=== PATIENT | female | born 1940 | race Caucasian/White ===

== ENCOUNTER 2016-09-12 07:40 | Observation (INO) | payer MEDICARE ==
[~2016-09-12] VITALS: Ht 154.9 cm; Wt 66.2 kg
[2016-09-12] VITALS (10 sets, daily range): BP systolic 90–198; BP diastolic 44–97; PULSE 56–70; RESP 15–18; TEMP 97–97.7; O2SAT 88–99
[2016-09-12] MEDS ORDERED: SIMV80TA PO (07:52)
[2016-09-12] MEDS ORDERED: LISI10TA3 PO (07:52)
--- NOTE | 2016-09-12 07:53 | PD ---
HPI Chief Complaint: Chest Pain Time Seen by Provider: 07:44 Travel History International Travel<30 days: No Contact w/Intl Traveler<30days: No Traveled to known affect area: No History of Present Illness HPI 76yo F with PMH of HTN, HLD presents to the ED with c/o left sided chest pain since last night. States she was sitting on couch and had left sided chest pain that was intermittent. However, when she woke up this morning, it was constant. Pain is pressure like, radiates up left jaw and left arm with some tingling in left fingers at times. Associated with chills, mild sob and nausea. Denies any fever, cough, vomiting, abdominal pain. Denies any previous history of similar chest pain, [place] or stroke. Does not take daily aspirin. Denies cig smoking. PFSH Social History Tobacco Use: No Allergies-Medications (Allergen,Severity, Reaction): Coded Allergies: No Known Allergies (Unverified , 09/12/16) Reported Meds & Prescriptions Reported Meds & Active Scripts Active Reported Simvastatin 80 Mg Tab 80 Mg PO DAILY Lisinopril 10 Mg Tab 10 Mg PO DAILY Review of Systems Except as stated in HPI: all other systems reviewed are Neg Physical Exam Narrative GENERAL: 76yo F in mild distress. SKIN: Focused skin assessment warm/dry. HEAD: Atraumatic. Normocephalic. NECK: Trachea midline. No JVD. CARDIOVASCULAR: Regular rate and rhythm. No murmur appreciated. RESPIRATORY: No accessory muscle use. Clear to auscultation. Breath sounds equal bilaterally. GASTROINTESTINAL: Abdomen soft, non-tender, nondistended. No rebound tenderness or guarding. MUSCULOSKELETAL: No obvious deformities. No clubbing. No cyanosis. No edema. No calf tenderness. NEUROLOGICAL: Awake and alert. No obvious cranial nerve deficits. Motor grossly within normal limits. Normal speech. PSYCHIATRIC: Appropriate mood and affect; insight and judgment normal. Data Data Last Documented VS Vital Signs Date Time Temp Pulse Resp B/P Pulse Ox O2 Delivery O2 Flow Rate FiO2 09/12/16 08:56 62 15 120/66 99 Nasal Cannula 2 09/12/16 07:46 97.7 Orders Electrocardiogram (09/12/16 07:49) Basic Metabolic Panel (Bmp) (09/12/16 07:49) Ckmb (Isoenzyme) Profile (09/12/16 07:49) Complete Blood Count With Diff (09/12/16 07:49) Magnesium (Mg) (09/12/16 07:49) Prothrombin Time / Inr (Pt) (09/12/16 07:49) Act Partial Throm Time (Ptt) (09/12/16 07:49) Troponin I (09/12/16 07:49) Chest, Single Ap (09/12/16 07:49) Ecg Monitoring (09/12/16 07:49) Bilateral Bp Monitoring (09/12/16 07:49) Iv Access Insert/Monitor (09/12/16 07:49) Oximetry (09/12/16 07:49) Oxygen Administration (09/12/16 07:49) Aspirin (Aspirin) (09/12/16 08:00) Nitroglycerin Sl (Nitrostat Sl) (09/12/16 08:00) Ondansetron Inj (Zofran Inj) (09/12/16 08:15) Sodium Chlor 0.9% 1000 Ml Inj (Ns 1000 M (09/12/16 09:00) NPO (09/12/16 08:59) Admit Order (Ed Use Only) (09/12/16 08:59) Labs Laboratory Tests Test 09/12/16 07:58 White Blood Count 8.8 TH/MM3 Red Blood Count 4.59 MIL/MM3 Hemoglobin 14.5 GM/DL Hematocrit 43.3 % Mean Corpuscular Volume 94.2 FL Mean Corpuscular Hemoglobin 31.5 PG Mean Corpuscular Hemoglobin 33.4 % Concent Red Cell Distribution Width 11.9 % Platelet Count 250 TH/MM3 Mean Platelet Volume 9.8 FL Neutrophils (%) (Auto) 60.3 % Lymphocytes (%) (Auto) 28.7 % Monocytes (%) (Auto) 8.3 % Eosinophils (%) (Auto) 1.7 % Basophils (%) (Auto) 1.0 % Neutrophils # (Auto) 5.4 TH/MM3 Lymphocytes # (Auto) 2.5 TH/MM3 Monocytes # (Auto) 0.7 TH/MM3 Eosinophils # (Auto) 0.1 TH/MM3 Basophils # (Auto) 0.1 TH/MM3 CBC Comment AUTO DIFF Differential Comment AUTO DIFF CONFIRMED Prothrombin Time 10.0 SEC Prothromb Time International 0.9 RATIO Ratio Activated Partial 24.2 SEC Thromboplast Time Sodium Level 143 MEQ/L Potassium Level 3.7 MEQ/L Chloride Level 104 MEQ/L Carbon Dioxide Level 31.8 MEQ/L Anion Gap 7 MEQ/L Blood Urea Nitrogen 20 MG/DL Creatinine 0.80 MG/DL Estimat Glomerular Filtration 70 ML/MIN Rate Random Glucose 103 MG/DL Calcium Level 9.9 MG/DL Magnesium Level 2.2 MG/DL Total Creatine Kinase 49 U/L Troponin I LESS THAN 0.02 NG/ML MDM Medical Decision Making Medical Screen Exam Complete: Yes Emergency Medical Condition: Yes Interpretation(s) EKG: Sinus bradycardia at 59bpm. Normal axis. No ST segment elevation or depression. Laboratory Tests Test 09/12/16 07:58 White Blood Count 8.8 TH/MM3 (4.0-11.0) Red Blood Count 4.59 MIL/MM3 (4.00-5.30) Hemoglobin 14.5 GM/DL (11.6-15.3) Hematocrit 43.3 % (35.0-46.0) Mean Corpuscular Volume 94.2 FL (80.0-100.0) Mean Corpuscular Hemoglobin 31.5 PG (27.0-34.0) Mean Corpuscular Hemoglobin 33.4 % Concent (32.0-36.0) Red Cell Distribution Width 11.9 % (11.6-17.2) Platelet Count 250 TH/MM3 (150-450) Mean Platelet Volume 9.8 FL (7.0-11.0) Neutrophils (%) (Auto) 60.3 % (16.0-70.0) Lymphocytes (%) (Auto) 28.7 % (9.0-44.0) Monocytes (%) (Auto) 8.3 % (0.0-8.0) Eosinophils (%) (Auto) 1.7 % (0.0-4.0) Basophils (%) (Auto) 1.0 % (0.0-2.0) Neutrophils # (Auto) 5.4 TH/MM3 (1.8-7.7) Lymphocytes # (Auto) 2.5 TH/MM3 (1.0-4.8) Monocytes # (Auto) 0.7 TH/MM3 (0-0.9) Eosinophils # (Auto) 0.1 TH/MM3 (0-0.4) Basophils # (Auto) 0.1 TH/MM3 (0-0.2) CBC Comment AUTO DIFF Differential Comment AUTO DIFF CONFIRMED Prothrombin Time 10.0 SEC (9.8-11.6) Prothromb Time International 0.9 RATIO Ratio Activated Partial 24.2 SEC Thromboplast Time (24.3-30.1) Sodium Level 143 MEQ/L (136-145) Potassium Level 3.7 MEQ/L (3.5-5.1) Chloride Level 104 MEQ/L (98-107) Carbon Dioxide Level 31.8 MEQ/L (21.0-32.0) Anion Gap 7 MEQ/L (5-15) Blood Urea Nitrogen 20 MG/DL (7-18) Creatinine 0.80 MG/DL (0.50-1.00) Estimat Glomerular Filtration 70 ML/MIN (>89) Rate Random Glucose 103 MG/DL (74-106) Calcium Level 9.9 MG/DL (8.5-10.1) Magnesium Level 2.2 MG/DL (1.5-2.5) Total Creatine Kinase 49 U/L (26-192) Troponin I LESS THAN 0.02 NG/ML (0.02-0.05) Differential Diagnosis ACS vs. NSTEMI vs. GERD vs. musculoskeletal pain Narrative Course 76yo F with chest pain concerning for angina. EKG unremarkable. Pt given aspirin 325mg PO and sublingual nitro PRN chest pain. Pt's blood pressure decreased after sublingual nitro and was given a little NS IVF. Pt felt a little nauseous after nitro and given zofran 4mg IV. BP normalized to 122/66. O2 sat did go down to 88% on RA at a time but it is now 98% on 1L NC and pt states her chest pain is improving. Labs reviewed, no leukocytosis. Troponin negative. BUN mildly increased at 20. CXR showed left basilar subsegmental atelectasis. Will admit pt to chest pain center for serial EKG and cardiac enzyme. Discussed case with Dr. Kelly and accepted to his service. Pt may need stress test, last ate or drank at 6pm last night, will keep NPO for now. Diagnosis Primary Impression: Chest pain Qualified Code: R07.9 - Chest pain, unspecified type Admitting Information Admitting Physician Requests: Linn Olivares DO September 12, 2016 07:53
[2016-09-12] MEDS ORDERED: ASPIRIN 325 MG TAB PO ONE (08:00)
[2016-09-12] MEDS: NITROGLYCERIN 0.4 MG SL 25 TABS/BTL SL PRN ×2 (08:01→08:09)
[2016-09-12 08:06] LABS: AUTOMATED NEUTROPHIL # 5.4 TH/MM3 (1.8-7.7); BASOPHIL # 0.1 TH/MM3 (0-0.2); EOSINOPHIL # 0.1 TH/MM3 (0-0.4); EOSINOPHIL % 1.7 % (0.0-4.0); HEMATOCRIT 43.3 % (35.0-46.0); LYMPH % 28.7 % (9.0-44.0); LYMPHOCYTE # 2.5 TH/MM3 (1.0-4.8); MEAN CELL VOLUME 94.2 FL (80.0-100.0); MEAN CORPUSCULAR HEMOGLOBIN 31.5 PG (27.0-34.0); MEAN CORPUSCULAR HGB CONC 33.4 % (32.0-36.0); MONO % 8.3 % (0.0-8.0); NEUT % 60.3 % (16.0-70.0); PLATELET COUNT 250 TH/MM3 (150-450); RED BLOOD COUNT 4.59 MIL/MM3 (4.00-5.30); RED CELL DISTRIBUTION WIDTH 11.9 % (11.6-17.2); WHITE BLOOD COUNT 8.8 TH/MM3 (4.0-11.0)
[2016-09-12 08:09] LABS: HEMO FLAGS AUTO DIFF
[2016-09-12 08:11] LABS: CHLORIDE 104 MEQ/L (98-107); POTASSIUM 3.7 MEQ/L (3.5-5.1); SODIUM (NA) 143 MEQ/L (136-145)
[2016-09-12 08:14] LABS: ANION GAP 7 MEQ/L (5-15); BICARBONATE 31.8 MEQ/L (21.0-32.0); BLOOD UREA NITROGEN 20 MG/DL (7-18); MAGNESIUM 2.2 MG/DL (1.5-2.5)
[2016-09-12 08:15] LABS: APTT (PATIENT) 24.2 SEC (24.3-30.1); INTERNATIONAL NORMALIZED RATIO 0.9 RATIO
[2016-09-12] MEDS ORDERED: ONDANSETRON HCL 4 MG/2 ML VIAL IV PUSH ONE (08:15)
[2016-09-12 08:18] LABS: GLOMERULAR FILTRATION RATE 70 ML/MIN (>89)
[2016-09-12 08:24] LABS: CREATINE KINASE 49 U/L (26-192)
[2016-09-12 08:28] LABS: SCAN/DIFF AUTO DIFF CONFIRMED
--- NOTE | 2016-09-12 08:43 | RADHPO ---
EXAM DATE/TIME: 09/12/2016 08:16 [facility] COMPARISON: No previous studies available for comparison. INDICATIONS : Chest pain, short of breath, nausea. MEDICAL HISTORY : Hypertension. SURGICAL HISTORY : None. ENCOUNTER: Initial ACUITY: 1 day PAIN SCORE: 8/10 LOCATION: Bilateral chest FINDINGS: A single view of the chest demonstrates no evidence of mass, infiltrate or effusion. Minimal left bas ilar subsegmental atelectasis. The cardiomediastinal contours are unremarkable. Osseous structures a re intact. CONCLUSION: Left basilar subsegmental atelectasis. Luisito Gallardo MD on September 12, 2016 at 8:39 Board Certified Radiologist. This report was verified electronically.
[2016-09-12] MEDS ORDERED: SODIUM CHLOR 0.9% 1000 ML INJ 1,000 ML IV SCH (08:57)
[2016-09-12] MEDS ORDERED: ACETAMINOPHEN 500 MG CPLT PO PRN (09:00)
[2016-09-12] MEDS ORDERED: ASPIRIN 325 MG TAB PO SCH (09:00)
[2016-09-12] MEDS ORDERED: SODIUM CHLORIDE 0.9% FLUSH 10 ML FLUSH IV FLUSH PRN (09:00)
[2016-09-12] MEDS ORDERED: MORPHINE SULFATE 4 MG/ML INJ IV PRN (09:00)
[2016-09-12] MEDS ORDERED: SODIUM CHLORIDE 0.9% FLUSH 10 ML FLUSH IV FLUSH SCH (09:00)
[2016-09-12] MEDS ORDERED: ACETAMINOPHEN/HYDROcodone 325 MG/7.5 MG TAB PO PRN (09:00)
[2016-09-12] MEDS ORDERED: ONDANSETRON HCL 4 MG/2 ML VIAL IV PRN (09:00)
[2016-09-12] MEDS ORDERED: HEPARIN SODIUM - SQ 10,000 UNITS/ML VIAL SQ SCH (09:00)
[2016-09-12] MEDS ORDERED: SODIUM CHLOR 0.9% 1000 ML INJ 1,000 ML IV ONE (09:00)
[2016-09-12] MEDS ORDERED: PRAVASTATIN SOD 80 MG TAB PO SCH (09:15)
[2016-09-12 10:53] LABS: CREATINE KINASE 35 U/L (26-192)
--- NOTE | 2016-09-12 12:58 | HHI.DCPOC ---
Discharge Care Plan Diagnosis: (1) Chest pain Your Health Problems Are: Difficulty with ADL Chest Pain Exercise Tolerance Goals to Promote Your Health * To prevent worsening of your condition and complications * To maintain your health at the optimal level Directions to Meet Your Goals Take your medications as prescribed Follow your dietary instruction Follow activity as directed Keep your appointments as scheduled Take your immunizations and boosters as scheduled If your symptoms worsen call your PCP, if no PCP go to Urgent Care Center or Emergency Room Smoking is Dangerous to Your Health. Avoid second hand smoke Call the 24-hour hour crisis hotline for domestic abuse at Hemanth Kelly MD September 12, 2016 12:58
--- NOTE | 2016-09-12 13:09 | HHI.HP ---
[facility] Carly Barajas MD Admission Diagnosis Chest pain Diagnoses: Chief Complaint: Chest pain Travel History International Travel<30 Days: No Contact w/Intl Traveler <30 Da: No Traveled to Known Affected Are: No History of Present Illness This is a 76 yo F with PMH of HTN and HLD. She presents to the ED complaining of left sided chest pain. Last night, she did not feel well. This morning she developed a constant heavy sensation in her chest scale of 8 out of 10 radiating to her jaw and left upper extremity with some tingling in her left fingers at times. She also reports of dizziness, nausea and diaphoresis. Denies palpitations, shortness of breath, fever and chills. Denies any previous history of similar chest pain, [place] or stroke, DVT and PE. No recent immobilization. Does not take daily aspirin. When she arrived in the emergency department, her blood pressure was elevated and dropped to 90/44 after receiving sublingual nitroglycerin. She received fluid bolus . At this time as, she is pain-free but feels wiped out. Review of Systems Except as stated in HPI: all other systems reviewed are Neg Past Family Social History Past Medical History As previously mentioned Past Surgical History Knee and cataract surgery Reported Medications Simvastatin 80 Mg Tab 80 Mg PO DAILY Lisinopril 10 Mg Tab 10 Mg PO DAILY Allergies: Coded Allergies: No Known Allergies (Unverified , 09/12/16) Family History No heart disease Social History Does not smoke or drink Physical Exam Vital Signs Vital Signs Date Time Temp Pulse Resp B/P Pulse Ox O2 Delivery O2 Flow Rate FiO2 09/12/16 11:44 98 21 09/12/16 10:37 68 09/12/16 10:00 97.0 56 18 140/74 99 09/12/16 09:40 61 15 122/67 99 Nasal Cannula 2 09/12/16 08:56 62 15 120/66 99 Nasal Cannula 2 09/12/16 08:15 58 15 90/44 88 Nasal Cannula 2 09/12/16 08:15 15 09/12/16 08:10 61 112/61 108/59 09/12/16 07:55 99 Room Air 09/12/16 07:55 15 98 Room Air 09/12/16 07:46 97.7 70 18 198/97 96 Physical Exam GENERAL: This is a well-nourished, well-developed patient, in no apparent distress. SKIN: No rashes, ecchymoses or lesions. Cool and dry. HEAD: Atraumatic. Normocephalic. No temporal or scalp tenderness. EYES: Pupils equal round and reactive. Extraocular motions intact. No scleral icterus. No injection or drainage. ENT: Nose without bleeding, purulent drainage or septal hematoma. Throat without erythema, tonsillar hypertrophy or exudate. Uvula midline. Airway patent. NECK: Trachea midline. No JVD or lymphadenopathy. Supple, nontender, no meningeal signs. CARDIOVASCULAR: Regular rate and rhythm without murmurs, gallops, or rubs. Tender chest wall RESPIRATORY: Clear to auscultation. Breath sounds equal bilaterally. No wheezes , rales, or rhonchi. GASTROINTESTINAL: Abdomen soft, non-tender, nondistended. No guarding. MUSCULOSKELETAL: Extremities without clubbing, cyanosis, or edema. No joint tenderness, effusion, or edema noted. No calf tenderness. Negative Homans sign bilaterally. NEUROLOGICAL: Awake and alert. Cranial nerves II through XII intact. Motor and sensory grossly within normal limits. Five out of 5 muscle strength in all muscle groups. Normal speech. Laboratory Laboratory Tests Test 09/12/16 09/12/16 07:58 10:20 White Blood Count 8.8 Red Blood Count 4.59 Hemoglobin 14.5 Hematocrit 43.3 Mean Corpuscular Volume 94.2 Mean Corpuscular Hemoglobin 31.5 Mean Corpuscular Hemoglobin 33.4 Concent Red Cell Distribution Width 11.9 Platelet Count 250 Mean Platelet Volume 9.8 Neutrophils (%) (Auto) 60.3 Lymphocytes (%) (Auto) 28.7 Monocytes (%) (Auto) 8.3 Eosinophils (%) (Auto) 1.7 Basophils (%) (Auto) 1.0 Neutrophils # (Auto) 5.4 Lymphocytes # (Auto) 2.5 Monocytes # (Auto) 0.7 Eosinophils # (Auto) 0.1 Basophils # (Auto) 0.1 CBC Comment AUTO DIFF Differential Comment AUTO DIFF CONFIRMED Prothrombin Time 10.0 Prothromb Time International 0.9 Ratio Activated Partial 24.2 Thromboplast Time Sodium Level 143 Potassium Level 3.7 Chloride Level 104 Carbon Dioxide Level 31.8 Anion Gap 7 Blood Urea Nitrogen 20 Creatinine 0.80 Estimat Glomerular Filtration 70 Rate Random Glucose 103 Calcium Level 9.9 Magnesium Level 2.2 Total Creatine Kinase 49 35 Troponin I LESS THAN 0.02 LESS THAN 0.02 Result Diagram: 09/12/16 0758 09/12/16 0758 Imaging EKG tracing 2 interpreted by me with sinus bradycardia in the 50s with no acute ST-T changes Chest x-ray image interpreted by me with no acute cardiopulmonary disease Last Impressions Chest X-Ray 09/12/16 0749 Signed Impressions: Service Date/Time: Monday, September 12, 2016 08:16 - CONCLUSION: Left basilar subsegmental atelectasis. Luisito Gallardo MD Assessment and Plan Problem List: (1) Chest pain ICD Code: R07.9 Status: Acute Assessment and Plan This is a 76 yo F with PMH of HTN and HLD. She presents to the ED complaining of left sided chest pain radiating to her jaw and left upper extremity with some tingling in her left fingers at times. She also reports of dizziness, nausea and diaphoresis. Chest pain. Patient is ruling out for AL. EKG unremarkable. Chest x-ray also unremarkable. Because of risk factors of hypertension and hyperlipidemia, patient will undergo stress test. Keep nothing by mouth. Continue aspirin. If stress test negative for ischemia, chest pain likely secondary to musculoskeletal disorder. Transient hypotension after receiving sublingual nitroglycerin. Improved with fluid bolus. Hold antihypertensives for now. Continue IV hydration while still nothing by mouth. History of hyperlipidemia continue statins DVT prophylaxis with SCD and subcutaneous heparin Discussed Condition With Patient, family and nursing staff Discharge patient to home Condition on discharge: Improved Heart healthy Diet as tolerated Ad Jacklyn activity Rx written: OTC Tylenol or ibuprofen Follow-up with primary care physician in one week Problem Qualifiers (1) Chest pain: Qualified Code: R07.9 - Chest pain, unspecified type Hemanth Kelly MD September 12, 2016 13:09
[2016-09-12 14:33] LABS: CREATINE KINASE 34 U/L (26-192)
[2016-09-12] MEDS ORDERED: REGADENOSON INJ 0.4 MG/5 ML SYR IV ONE (14:48)
--- NOTE | 2016-09-12 15:24 | EKG ---
Date Performed: 09/12/2016 Time Performed: 07:48:58 PTAGE: 76 years EKG: Sinus bradycardia Normal ECG except for rate NO PREVIOUS TRACING DOCTOR: Isabella Milan Interpretating Date/Time 09/12/2016 15:23:12
--- NOTE | 2016-09-12 17:29 | RADHPO ---
EXAM DATE/TIME: 09/12/2016 14:52 [facility] COMPARISON: No previous studies available for comparison. INDICATIONS : Left chest pain radiating to left jaw and arm with nausea and dyspnea. Angina. DOSE: 27.2 mCi Tc99m Myoview at stress. 8.1 mCi Tc99m Myoview at rest. 0.4 mg Lexiscan STRESS SYMPTOMS: Heasdache. EJECTION FRACTION: > 70% MEDICAL HISTORY : Hypercholesterolemia. Hypertension. SURGICAL HISTORY : Total knee replacement, right. ENCOUNTER: Initial ACUITY: 1 day PAIN SCALE: 7/10 LOCATION: Left chest TECHNIQUE: The patient underwent pharmacologic stress with infusion of prescribed dose. Continuous ECG tracing was monitored during stress. Gated SPECT imaging was performed after stress and conventional SPECT i maging was performed at rest. The examination was performed on a SPECT/CT scanner, both attenuation and non-corrected datasets were reviewed. FINDINGS: DISTRIBUTION: The maximum perfused segment at stress is in the anterolateral wall. PERFUSION STUDY: 10% reversibility in sections of the septal wall are statistically insignificant. No scintigraphic fi ndings of ischemia. Fixed diminished perfusion to the apex may represent some apical thinning or old apical infarct. GATED STUDY: There is intact wall motion and thickening without hypokinetic or dyskinetic segments. CONCLUSION: 1. No scintigraphic findings of ischemia. 2. Fixed diminished perfusion to the apex is nonspecific and could represent some apical thinning or old apical infarct. 3. Excellent wall motion throughout with estimated ejection fraction of greater than 70%. RISK CATEGORY: Low (<1% Annual Mortality Rate) Berto Smith MD on September 12, 2016 at 17:23 Board Certified Radiologist. This report was verified electronically.
--- NOTE | 2016-09-13 06:22 | EKG ---
Date Performed: 09/12/2016 Time Performed: 10:09:06 PTAGE: 76 years EKG: Sinus bradycardia. Normal ECG except for rate PREVIOUS TRACING : 09/12/2016 07.48 Compared to prior tracing no significant change DOCTOR: Herbert Chaves Interpretating Date/Time 09/13/2016 06:22:10
--- NOTE | 2016-09-13 06:25 | EKG ---
Date Performed: 09/12/2016 Time Performed: 07:04:52 PTAGE: 76 years EKG: Sinus bradycardia. Normal ECG except for rate NO PREVIOUS TRACING DOCTOR: Herbert Chaves Interpretating Date/Time 09/13/2016 06:23:35
== END 2016-09-12 18:05 | disposition home or self-care (01) ==
LOC: PHED 07:40 → PHEDA 09:00 → PH3B 09:43
PROVIDERS: ADMIT Hospitalist; ATTEND Hospitalist
DX: R07.89 Other chest pain (principal); R11.0 Nausea; I10 Essential (primary) hypertension; E78.5 Hyperlipidemia, unspecified
CPT/HCPCS: 71010; 78452; 80048; 82550; 83735; 84484; 85025; 85610; 85730; 93005; 93017; 96374; 99285; A9502; G0378; J1644; J2405; J2785; J7030

== ENCOUNTER 2017-11-21 06:51 | Inpatient (IN) ==
[2017-11-21] MEDS ORDERED: Dexamethasone Inj 20 MG/5 ML Vial IV.PUSH ONE (07:25)
[2017-11-21] MEDS ORDERED: Sodium Chlor 0.9% Inj 73.07 ML, Ropivacaine 0.5% PF Inj 24.63 ML, Ketorolac Inj 30 MG, ... P-ARTICULR SCH ×5 (07:30)
[2017-11-21] MEDS ORDERED: Chlorhexidine 4% Topical 120 APPLIC/120 ML Bottle TOPICAL SCH (07:30)
[2017-11-21] MEDS ORDERED: Chlorhexidine Gluconate 2% 1 Pack (2 Cloths) TOPICAL SCH (07:45)
[2017-11-21] MEDS ORDERED: Metoprolol Tartrate 25 MG Tablet PO SCH (07:45)
[2017-11-21] MEDS ORDERED: SODIUM CHLOR 0.9% IV.SIG SCH (08:00)
[2017-11-21] MEDS ORDERED: ceFAZolin 2 GM Premix Inj 2 GM/50 ML PIGGYBACK IV.SIG SCH (08:00)
[2017-11-21] MEDS ORDERED: Sodium Chlor 0.9% Inj 500 ML IV.SIG SCH (08:00)
[2017-11-21] MEDS ORDERED: TRANEXAMIC ACID IV.SIG SCH (08:00)
[2017-11-21] MEDS ORDERED: Vancomycin Inj 1 GM/200 ML PIGGYBACK IV.SIG SCH (08:00)
[2017-11-21] MEDS ORDERED: Bupivacaine Liposomal PF 1.3% Inj 20 ML Vial ONE (08:43)
[2017-11-21] MEDS ORDERED: Famotidine PF Inj 20 MG/2 ML Vial ONE (09:24)
[2017-11-21] MEDS ORDERED: Post-op Orders (for Pharmacy) OTHER STA (11:28)
[2017-11-21] MEDS ORDERED: Bisacodyl 10 MG Supp RECTAL PRN (11:28)
[2017-11-21] MEDS ORDERED: Morphine Inj 4 MG/ML Vial IV.PUSH PRN (11:28)
[2017-11-21] MEDS ORDERED: Aluminum/Magnesium/Simethacone Susp 30 ML UDC PO PRN (11:28)
--- NOTE | 2017-11-21 11:32 | P.OP ---
- Preoperative Diagnosis (1) Osteoarthritis of left knee - Postoperative Diagnosis (1) Osteoarthritis of left knee Date of procedure: 11/21/17 Procedure: Left total knee arthroplasty Anesthesia: GETA, regional (Adductor canal block) Surgeon: Mir Eubanks MD Brewery Pumper: LIA Swanson The surgical procedure was assisted by my Advanced Registered Nurse Practitioner. My FROZEN PIE MAKER presence was necessary throughout this case for the manipulation and positioning of the surgical extremity. My FROZEN PIE MAKER was assisting me throughout the duration of this procedure. The skill set of an Advance Registered Nurse Practitioner was medically necessary to complete this procedure. During the surgical case, the neurosurgical nurse practitioner was working at the back table and the Advance Registered Nurse Practitioner was directly assisting me. Operation and Findings: IMPLANTS: DePuy Attune: Patella: size 32. Femur, posterior stabilized size 5 narrow. Tibia, rotating platform size 4. Tibial insert, rotating platform, posterior stabilized size 8 mm thickness. ESTIMATED BLOOD LOSS: 125 cc TOURNIQUET TIME: 35 minutes at 250 mmHg pressure. JUSTIFICATION FOR PROCEDURE: The patient has end-stage osteoarthritis to the knee. There is an attached conservative measures pathway form in the chart that describes the nonoperative measures that were undertaken prior to consideration of surgical management. The patient understood the risks and benefits of surgical management. See my office notes for further details PROCEDURE: The patient was brought back to the operative theatre. Adequate anesthesia was obtained. The patient received intravenous vancomycin and Ancef. The lower extremity was prepped and draped in the usual sterile fashion.The leg was exsanguinated, the tourniquet was raised. A standard anterior incision was performed followed by medial parapatellar arthrotomy was performed. End-stage arthritis was identified. Osteotomy of the patella was performed. We drilled holes for the patella. We trialed the patella component. We placed an intramedullary guide into the distal femur. We ultimately resected 11 mm off of the distal femur in 5 degrees of valgus. The remnants of the ACL and PCL were resected. Osteotomy of the proximal tibia was performed, resecting 5 mm off of the medial side. This was done with 3 degrees of posterior slope using an extramedullary guide. The distal end of the guide was placed in the mid aspect of the ankle. The femur was sized, and four chamfer cuts were completed in 3 of external rotation. We then cut the central box in the distal femur to replace the PCL. We resected the remnants of the menisci and removed osteophytes off of the femur and tibia. We then trialed the knee. We punched the tibia for the keel, and then used standard technique to cement in components. Excess cement was removed. We trialed the knee again and the final polyethylene thickness was chosen to provide extension to 0 degrees, and flexion of 140 degrees to gravity. The ligaments were appropriately balanced. Lateral release was not necessary to obtain excellent patellofemoral tracking. The tourniquet was released and adequate hemostasis was obtained. An intra- articular injection of a ropivacaine cocktail was injected. The posterior knee was inspected for excess cement, which was removed. The final polyethylene was put into position after thorough irrigation. We then closed deep fascia with a #2 Stratafix followed by skin with 2-0 Vicryl followed by Dermabond dressing. Postop plan is to weight-bear as tolerated. DVT prophylaxis will be performed with SCDs, VIVIANA hose, early mobilization, and Lovenox followed by aspirin.
[2017-11-21] MEDS ORDERED: TRANEXAMIC ACID IV.SIG ONE (12:00)
[2017-11-21] MEDS ORDERED: Glycopyrrolate Inj 1 MG/5 ML Syringe IV.PUSH ONE (12:00)
[2017-11-21] MEDS ORDERED: Lidocaine PF 1% Inj 5 ML Syringe INFILTRATN ONE (12:00)
[2017-11-21] MEDS ORDERED: SODIUM CHLOR 0.9% IV.SIG ONE (12:00)
[2017-11-21] MEDS ORDERED: Neostigmine Inj 5 MG/5 ML Syringe IV.PUSH ONE (12:00)
[2017-11-21] MEDS ORDERED: fentaNYL Citrate Inj 100 MCG/2 ML Ampul ONE (12:00)
[2017-11-21] MEDS ORDERED: *Meperidine Inj 25 MG/ML Vial PERIprocedural Use ONLY ONE (12:18)
[2017-11-21] MEDS ORDERED: *Ondansetron Inj 4 MG/2 ML Vial PERIprocedural Use ONLY ONE (12:18)
--- NOTE | 2017-11-21 12:26 | XR ---
EXAM DATE: 11/21/2017 12:24 PM EDT AGE/SEX: 77 years / Female INDICATIONS: Post op left knee. CLINICAL DATA: This is the patient's initial encounter. Patient reports that signs and symptoms have been present for 1 day and indicates a pain score of Nonresponsive. MEDICAL/SURGICAL HISTORY: None. None. COMPARISON: No prior exams available for comparison. FINDINGS: There is a knee prosthesis in place. There is good position and alignment on this postoperative study . The bony structures are grossly intact. CONCLUSION: Good position and alignment on this postoperative study. Electronically signed by: Heriberto See MD 11/21/2017 12:25 PM EDT
[2017-11-21] MEDS: Sod Chloride 0.9% Inj 1,000 ML IV.CONT SCH (12:38)
[2017-11-21] MEDS ORDERED: *morphine SULFATE 4 MG/ML PERIprocedure ONLY ONE (13:20)
--- NOTE | 2017-11-21 15:42 | P.DCO ---
- Physical Therapy Physical Therapy: Gait training, Transfer training, bed to chair Knee: Total knee Left Lower Extremity Weight Bearing: Weight bearing as tolerated Left Lower Extremity Range of Motion: Active ROM - Nursing Nursing: Hansa nguyen Dressing changes: Do not change dressing Additional instructions: First dressing change in the office - Certification Need for Home Health services: I have seen patient Carolynn Zamora on 11/21/17. My clinical findings support the need for the requested home health care services because: Need for Home Health Services: Limited ability to care for self, High risk of falls Homebound Certification: I certify that my clinical findings support that this patient is homebound because: Homebound Certification: Post-op weakness, Unsteady gait/balance
[2017-11-21] MEDS ORDERED: Lisinopril 10 MG Tablet PO SCH (21:00)
[2017-11-21] MEDS ORDERED: Zolpidem Tartrate 5 MG Tablet PO PRN (21:00)
[2017-11-21] MEDS: Senna/Docusate Sodium 8.6/50 MG Tablet PO SCH (21:36)
[2017-11-21] MEDS: Multivitamin/Minerals Therapeutic Tablet PO SCH (21:36)
[2017-11-22 05:46] LABS: Hematocrit 30.9 % (35.0-46.0); Hemoglobin 11.2 gm/dL (11.6-15.3)
[2017-11-22] MEDS: Sod Chloride 0.9% Inj 1,000 ML IV.CONT SCH (06:41)
[2017-11-22] MEDS ORDERED: Dexamethasone Inj 20 MG/5 ML Vial IV.PUSH ONE (08:00)
[2017-11-22] MEDS: Multivitamin/Minerals Therapeutic Tablet PO SCH (08:32)
[2017-11-22] MEDS: Senna/Docusate Sodium 8.6/50 MG Tablet PO SCH (08:32)
[2017-11-22] MEDS ORDERED: Enoxaparin Inj 40 MG/0.4 ML Syringe SQ SCH (11:00)
--- NOTE | 2017-11-22 19:03 | P.PNOP ---
Subjective Interval history: The patient has requested to go home prior to being evaluated by the undersigned. Physical Exam Vital signs: Vital Signs 11/21/17 20:40 11/22/17 00:00 11/22/17 04:00 Temperature 97.8 F 97.5 F L 98.3 F Pulse Rate 66 69 70 Respiratory Rate 20 16 16 Blood Pressure 135/63 130/65 112/60 Pulse Oximetry 95 96 95 11/22/17 08:00 11/22/17 12:00 Temperature 98.4 F 99.2 F Pulse Rate 68 73 Respiratory Rate 16 16 Blood Pressure 121/60 114/57 L Pulse Oximetry 96 92 L Intake & Output 11/21/17 11/22/17 11/22/17 18:59 06:59 18:59 Intake Total 4014.71 / 4014.71 2363.71 / 2363.71 Output Total 250 / 250 Balance 3764.71 / 3764.71 2363.71 / 2363.71 Weight 67.1 kg 67.1 kg Intake: IV 759.71 / 759.71 71 / 71 NS Inj 1,000 ML @ 80 mls/hr IV. 197 / 197 803 / 803 CONT .[id number] [facility] Rx#:[id number] LR 1000 mL Inj 1,000 ML @ 30 1000 / 1000 mls/hr IV.SIG .Q24H [facility] Rx#: [id number] Cyklokapron Inj 671 MG In NS 212.71 / 212.71 Inj 100 ML @ 200 mls/hr IV.SIG ONCE ONE Rx#:[id number] Vancomycin Inj 1 gm In 200 ml @ 200 / 200 200 mls/hr IV.SIG [employer] [facility] Rx#:[id number] Ancef 2 GM Premix Inj 2 gm In 50 / 50 50 ml @ 100 mls/hr IV.SIG [employer] [facility] Rx#:[id number] Ancef Inj 1,000 MG In NS Inj 100 / 100 200 / 200 100 ML @ 200 mls/hr IV.SIG Q6H [facility] Rx#:[id number] Oral 55 / 55 360 / 360 Anesthesia Amount 3200 / 3200 Output: Estimated Blood Loss 250 / 250 Other: # Voids 1 Date of Last Bowel Movement 11/21/17 11/21/17 Weight On Admission 67.1 kg Results - Labs CBC & Chem 7: 11/22/17 04:56 Laboratory Results - last 24 hr 11/22/17 04:56 Hgb 11.2 L Hct 30.9 L Assessment and Plan - Problem List (1) Status post total knee replacement, left Code(s): Z96.652 - Presence of left artificial knee joint Status: Acute (2) Osteoarthritis of left knee Code(s): M17.12 - Unilateral primary osteoarthritis, left knee Status: Acute - Assessment and Plan POD #1: [Right] total knee arthroplasty 1. Weightbearing as tolerated on [right] lower extremity. 2. Lovenox followed by aspirin for DVT prophylaxis. 3. Ice as needed for swelling. 4. Stable per ortho for discharge to home health. The patient was discharged prior to evaluation today by the undersigned. The patient had a clean, dry, and intact dressing per conversation with the nurse. The patient's postop labs were reviewed prior to discharge by the undersigned. The patient was instructed in her postop plan of care prior to surgery and reinforced today by staff per the undersigned's request. 5. The patient will follow up with Dr. Eubanks and/or LIA Shoemaker as previously scheduled.
--- NOTE | 2017-12-05 16:02 | P.DS ---
Date of admission: 11/21/17 06:51 Primary care physician: Benito Merrill Attending physician on discharge: Mir Eubanks Anticipated date of discharge: 11/22/17 Brief History from admission: Patient has history of severe OA of the left knee and was admitted for a left TKA. DS: Diagnosis - Discharge Diagnosis (1) Status post total knee replacement, left Status: Acute Diagnosis: Principal (2) Osteoarthritis of left knee Status: Acute Diagnosis: Principal DS: Summary Hospital Course: The patient was admitted to the hospital for severe osteoarthritis of the [left ] knee to have a [left] total knee arthroplasty. The patient's surgery went well with no complication. The patient is on a [regular] diet. The patient's DVT prophylaxis includes use of [Lovenox followed by aspirin]. The patient is weightbearing as tolerated. The patient was discharged [home with home health] and will follow up in the office with Dr. Eubanks and/or LIA Shoemaker as previously scheduled. - Time Spent with Patient Total time spent providing and/or coordinating discharge services: Greater than 30 minutes - Quality: VTE Deep Vein Thrombosis/Pulmonary Embolism Present on Admission: No Exam Narrative: See last progress note for Physical Exam Results Procedures completed during hospitalization: Left TKA - Impressions ITS Impressions Knee X-Ray 11/21/17 11:28 CONCLUSION: Good position and alignment on this postoperative study. Discharge Plan - Discharge Disposition Patient Disposition: W/Home Health Service - Discharge Condition Condition: Stable - Discharge Order Discharge Orders: Discharge Order (Routine); Ordered 11/21/17 Ordered By: Danny Pozo - Discharge Details Anticipated Discharge Date: 11/22/17 Discharge Comment: The patient will follow-up in the office as previously scheduled with Dr. Eubanks or LIA Shoemaker - Physicians Team Attending Provider: Mir Eubanks - Rxs /Orders / Referrals /Forms Prescriptions: Continue levofloxacin [Levaquin] 750 mg Tablet 750 mg PO DAILY MDD X5DAYS lisinopril 10 mg Tablet 10 mg PO HS simvastatin 80 mg Tablet 80 mg PO HS Ambulatory Orders / Order Sets / DME: Adjustable Commode 3-in-1 (1 each) (Routine) Location: Determined by Patient Ordered By: Danny Pozo CPM - Continuous Passive Motion Machine (1 each) (Routine) Location: Determined by Patient Ordered By: Danny Pozo Walker With Front Wheels (1 each) (Routine) Location: Determined by Patient Ordered By: Danny Pozo Referrals: Benito Merrill [Other] - See Instructions Mir Eubanks MD [Physician] - See Instructions - Discharge Instructions Patient Printed Instructions: Precautions after Total Joint Replacement Surgery (ED), Joint Replacement Surgery (GEN), Knee Replacement (DC), Knee Replacement (GEN) Additional Instructions: The patient will follow-up in the office as previously scheduled with Dr. Eubanks or LIA Shoemaker. Take medications as directed. Maintain safety precautions to prevent falls. - Post Discharge Care Plan Care Plan Goals: Discharge Care Plan Goals for Total Knee Replacement You have undergone knee replacement surgery. Your doctor replaced your painful joint with an artificial joint to relieve pain and restore movement. Here are some goals to help you heal well. Directions to Meet your Goals: 1. Activity & Exercises: * Take pain medicine as directed by your doctor. * Sit in chairs with arms. The arms make it easier for you to stand up or sit down. * Dont sit for more than 30 to 45 minutes at one time. * Nap if you are tired, but dont stay in bed all day. * Sleep with a pillow under your ankle, not your knee. Be sure to change the position of your leg during the night. * Wear the support stockings you were given in the hospital as directed by your surgeon. 2. Prevent Falls/Injury: The [place] to successful recovery is movement with walking and exercising your knee as directed by your doctor. * Arrange your household to keep the items you need handy. Keep everything else out of the way. * Remove items that may cause you to fall, such as throw rugs and electrical cords. * Use nonslip bath mats, grab bars, an elevated toilet seat, and a shower chair in your bathroom * Sit on a shower stool or chair when you shower to keep from falling. * Until your balance, flexibility, and strength improve, use a cane, crutches, a walker, handrails, or someone to help you. * Keep your hands free by using a backpack, fabrice pack, apron, or pockets to carry things * Walk up and down stairs with support. Try one step at a time. Use the railing if possible. * Dont drive until your doctor says its OK. * Dont drive while you are taking opioid pain medicine. 3. Precautions: * Prevent infection. Any infection will need to be treated immediately. Call your doctor right away if you think you might have an infection. * Tell your dentist that you have an artificial joint and take antibiotics as prescribed before any dental work. * Tell all your healthcare providers about your artificial joint before any medical procedure. * Maintain a healthy weight. Get help to lose any extra pounds. Added body weight puts stress on the knee. * Your medications may include blood-thinning medicine to prevent blood clots or antibiotics to prevent infection-prevent any falls or cuts 4. Incision Care: * Prevent infection by washing your hands often. If an infection occurs, it will need to be treated right away. * Call your doctor right away if you think you may have an infection. Symptoms include a fever or an incision that leaks white, green, or yellow fluid. * Don't soak your incision in water until your doctor says its OK. This means no hot tubs, bathtubs, or swimming pools. * Follow your doctor's instructions for changing the dressing. * Dont rub the incision, or apply creams or lotions to it. * If you notice any redness or drainage around the bandage site, contact your surgeon's office immediately. 5. Follow-Up: Do Not miss your follow-up appointment. Keep up with all your appointments and yearly check ups When to call your doctor: Call your doctor right away if you have: Fever of 100.4F (38C) or higher, or as directed by your doctor Shaking chills Stiffness, or inability to move the knee Increased swelling in your leg Increased redness, tenderness, or swelling in or around the knee incision Drainage from the knee incision Increased knee pain Call 911: Call 911 right away if you have: Chest pain Shortness of breath Any pain or tenderness in your calf
== END 2017-11-22 14:22 | disposition home health service (06) ==
LOC: HSDI 06:51 → N06 15:43
PROVIDERS: ADMIT Orthopaedic Surgery; ATTEND Orthopaedic Surgery